=== PATIENT | female | born 1940 | race Two or more races ===

== ENCOUNTER 2022-10-22 16:28 | Outpatient (CLI) | payer OTHER ==
[~2022-10-22 16:28] MED LIST: ATACAND32 MG; CRESTOR5 MG; NORVASC5 MG; PREMARIN0.45 MG
== END 2022-10-22 16:31 | disposition home or self-care (01) ==
LOC: SONOGRAMA 16:28
PROVIDERS: ATTEND Pathology Anatomic Pathology & Clinical Pathology
DX: E04.2 Nontoxic multinodular goiter (principal); E04.1 Nontoxic single thyroid nodule